=== PATIENT | male | born 1975 | race Caucasian/White ===

== ENCOUNTER 2023-12-05 06:14 | Day surgery (SDC) | payer OTHER, SELFPAY ==
[2023-12-05] VITALS (8 sets, daily range): BP systolic 117–145; BP diastolic 73–81; BMI 31.0
[2023-12-05] MEDS: NORMOSOL-R 1000 IV (07:40)
[2023-12-05] MEDS: TYLENOL 1000 MG PO (08:07)
== END 2023-12-05 11:05 | disposition home or self-care (01) ==
LOC: SDS 06:14
PROVIDERS: ATTENDING PHYSICIAN Specialist
DX: N20.0 Calculus of kidney (principal)
CPT/HCPCS: 50590